=== PATIENT | male | born 1955 | race Caucasian/White ===

== ENCOUNTER → 2018-01-02 | Outpatient (CLI) | payer BC ==
[2015-03-08 13:25] VITALS: BP 179/93
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
== END | disposition home or self-care (01) ==
LOC: CT 16:59
PROVIDERS: ATTEND Nurse Practitioner Gerontology
DX: K43.9 Ventral hernia without obstruction or gangrene (principal); N32.89 Other specified disorders of bladder
CPT/HCPCS: 72192

== ENCOUNTER 2018-02-11 06:22 | Inpatient (IN) | payer BC ==
[~2018-02-11] VITALS: Ht 170.2 cm; Wt 140.6 kg
[2018-02-11] VITALS (11 sets, daily range): BP systolic 99–144; BP diastolic 58–79
[~2018-02-11 06:22] MED LIST: ALLO300T PO; CITA20TA6 PO; GABA800T PO; LISD60CA PO; LISI10TA2 PO; METF500T16 PO; SIMV10TA3 PO; TOPI25TA52 PO; ceFAZolin SODIUM 3 GM in IV DEXTROSE 5% 100ML 100 ML IV PRN
[2018-02-11] MEDS ORDERED: HYDROmorphone 2 MG/ML VIAL IV PRN ×2 (07:00→10:15)
[2018-02-11] MEDS ORDERED: MORPHINE SULFATE 2 MG/ML VIAL. IV PRN (07:00)
[2018-02-11] MEDS ORDERED: fentaNYL PF VIAL 100 MCG/2 ML VIAL IV PRN (07:00)
[2018-02-11] MEDS ORDERED: IV RINGERS,LACTATED 1000ML 1,000 ML IV SCH (07:00)
[2018-02-11] MEDS ORDERED: ONDANSETRON PF 4 MG/2 ML VIAL. IV PRN ×2 (07:00→10:15)
[2018-02-11] MEDS ORDERED: LIDOCAINE 1% PF 2 ML VIAL. ID PRN (07:00)
[2018-02-11] MEDS ORDERED: PROCHLORPERAZINE 10 MG/2 ML VIAL. IV PRN (07:00)
[2018-02-11] MEDS ORDERED: BUPIVAC MPF-EPI 0.5%-1:200000 30 ML VIAL. ONE (07:19)
[2018-02-11 07:32] LABS: BASO % 1 % (0-3); EOS # 0.1 x10^3/uL (0.0-0.7); EOS % 2 % (0-3); HEMATOCRIT 38.2 % (39.0-53.0); HEMOGLOBIN 12.6 g/dL (13.0-17.5); LYMPH % 20 % (24-48); MEAN CORPUSCULAR HEMOGLOBIN 31 pg (25-35); MEAN CORPUSCULAR HGB CONC 33 g/dL (31-37); MEAN CORPUSCULAR VOLUME 92 fL (79-100); MONO # 0.4 x10^3/uL (0.0-1.1); MONO % 8 % (0-9); NEUT # 3.6 x10^3uL (1.8-7.7); NEUT % 70 % (31-73); PLATELET COUNT 190 x10^3/uL (140-400); RED BLOOD COUNT 4.13 x10^6/uL (4.30-5.70); RED CELL DISTRIBUTION WIDTH 15.5 % (11.5-14.5); WHITE BLOOD COUNT 5.2 x10^3/uL (4.0-11.0)
[2018-02-11] MEDS ORDERED: fentaNYL PF VIAL 100 MCG/2 ML VIAL ONE ×2 (07:45→08:16)
[2018-02-11] MEDS ORDERED: SUCCINYLCHOLINE 200 MG/10 ML VIAL. ONE (07:45)
[2018-02-11] MEDS ORDERED: ROCURONIUM 50 MG/5 ML VIAL. ONE (07:45)
[2018-02-11] MEDS ORDERED: MIDAZOLAM HCL/PF 2 MG/2 ML VIAL. ONE (07:46)
[2018-02-11 08:00] LABS: ALBUMIN 3.3 g/dL (3.4-5.0); CALCIUM 9.3 mg/dL (8.5-10.1); CREATININE 1.6 mg/dL (0.7-1.3); GFR 44.2
[2018-02-11] MEDS ORDERED: ePHEDrine PF IN SALINE 50 MG/5 ML DISP.SYRIN IV ONE (08:19)
[2018-02-11] MEDS ORDERED: GLYCOPYRROLATE 1 MG/5 ML VIAL. ONE (08:20)
[2018-02-11] MEDS ORDERED: PROPOFOL 20 ML IV ONE ×2 (08:26→09:21)
[2018-02-11] MEDS ORDERED: LIDOCAINE 2% PF Vial for OR 5 ML VIAL. ONE (08:26)
[2018-02-11] MEDS ORDERED: DEXAMETHASONE SOD PHOS 20 MG/5 ML VIAL. ONE (08:27)
[2018-02-11] MEDS ORDERED: ONDANSETRON PF 4 MG/2 ML VIAL. ONE (08:27)
[2018-02-11] MEDS ORDERED: NEOSTIGMINE METHYLSULFATE 5 MG/5 ML SYRINGE. ONE (08:40)
[2018-02-11] MEDS ORDERED: diphenhydrAMINE HCL 25 MG CAPSULE PO PRN (10:15)
[2018-02-11] MEDS ORDERED: oxyCODONE/APAP 5/325 1 TAB TABLET PO PRN ×2 (10:15)
[2018-02-11] MEDS ORDERED: 0.9 % SODIUM CHLORIDE 10 ML DISP.SYRIN. IV PRN (10:15)
[2018-02-11] MEDS: fentaNYL PF VIAL 100 MCG/2 ML VIAL IV PRN ×2 (10:16→10:24)
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
--- NOTE | 2018-02-11 10:18 | PDOC ---
BRIEF OPERATIVE NOTE Date: Feb 11, 2018 Pre-Op Diagnosis ventral incisional hernia Post-Op Diagnosis same, adhesions Procedure Performed repair with mesh ANNA Surgeon Guillermo Trains Dispatcher Supervisor Bethany RUTLEDGE Anesthesia Type: General Blood Loss 25cc IV Fluid 1000cc Urine Output 150cc Specimens Obtained hernia sack Findings multiple defects abdominal adhesions Complications none ERNA MARKHAM MD Feb 11, 2018 10:18
[2018-02-11] MEDS: ENOXAPARIN 40 MG/0.4 ML SYRINGE. SQ SCH (11:00)
[2018-02-11] MEDS: CITALOPRAM 20 MG TABLET. PO SCH (12:51)
[2018-02-11] MEDS: ALLOPURINOL 300 MG TABLET. PO SCH (12:51)
[2018-02-11] MEDS: TOPIRAMATE 25 MG TABLET. PO SCH ×2 (12:51→20:21)
[2018-02-11] MEDS: LISINOPRIL 10 MG TABLET PO SCH (12:52)
[2018-02-11] MEDS: IV 1/2 NORMAL SALINE 1,000 ML IV SCH ×2 (12:55→20:05)
[2018-02-11] MEDS: GABAPENTIN 300 MG CAPSULE. PO SCH ×2 (14:00→20:22)
[2018-02-11] MEDS: metFORMIN 500 MG TABLET PO SCH (17:00)
[2018-02-11] MEDS: DOCUSATE SODIUM 100 MG CAPSULE. PO SCH (20:21)
[2018-02-11] MEDS ORDERED: SIMVASTATIN 10 MG TABLET PO SCH (21:00)
[2018-02-12] MEDS: IV 1/2 NORMAL SALINE 1,000 ML IV SCH (02:26)
[2018-02-12 03:00] VITALS: BP 112/65
[2018-02-12 07:00] VITALS: BP 122/74
--- NOTE | 2018-02-12 08:01 | PDOC ---
SURGICAL PROGRESS NOTE Subjective tolerating clears, would like more to eat no n/v no bowel function yet pain at drain site Vital Signs Vital Signs Date Time Temp Pulse Resp B/P (MAP) Pulse Ox O2 Delivery O2 Flow Rate FiO2 02/12/18 03:00 97.8 51 16 112/65 (81) 96 Room Air 97.8 02/11/18 16:42 2.0 I&O Intake and Output 02/12/18 07:00 Intake Total 2250 ml Output Total 3550 ml Balance -1300 ml Intake IV Total 2250 ml Output Urine Total 3450 ml Drainage Total 100 ml General: Alert, Oriented X3, Cooperative, No acute distress Abdomen: Soft, Other (sudarshan serosang, dressing dry) Labs Laboratory Tests Test 02/11/18 07:15 02/11/18 10:03 02/11/18 20:26 White Blood Count 5.2 x10^3/uL (4.0-11.0) Red Blood Count 4.13 x10^6/uL (4.30-5.70) Hemoglobin 12.6 g/dL (13.0-17.5) Hematocrit 38.2 % (39.0-53.0) Mean Corpuscular Volume 92 fL (79-100) Mean Corpuscular Hemoglobin 31 pg (25-35) Mean Corpuscular Hemoglobin Concent 33 g/dL (31-37) Red Cell Distribution Width 15.5 % (11.5-14.5) Platelet Count 190 x10^3/uL (140-400) Neutrophils (%) (Auto) 70 % (31-73) Lymphocytes (%) (Auto) 20 % (24-48) Monocytes (%) (Auto) 8 % (0-9) Eosinophils (%) (Auto) 2 % (0-3) Basophils (%) (Auto) 1 % (0-3) Neutrophils # (Auto) 3.6 x10^3uL (1.8-7.7) Lymphocytes # (Auto) 1.0 x10^3/uL (1.0-4.8) Monocytes # (Auto) 0.4 x10^3/uL (0.0-1.1) Eosinophils # (Auto) 0.1 x10^3/uL (0.0-0.7) Basophils # (Auto) 0.0 x10^3/uL (0.0-0.2) Sodium Level 142 mmol/L (136-145) Potassium Level 4.0 mmol/L (3.5-5.1) Chloride Level 107 mmol/L (98-107) Carbon Dioxide Level 24 mmol/L (21-32) Anion Gap 11 (6-14) Blood Urea Nitrogen 16 mg/dL (8-26) Creatinine 1.6 mg/dL (0.7-1.3) Estimated GFR (Cockcroft-Gault) 44.2 Glucose Level 120 mg/dL (70-99) Calcium Level 9.3 mg/dL (8.5-10.1) Albumin 3.3 g/dL (3.4-5.0) Glucose (Fingerstick) 132 mg/dL (70-99) 143 mg/dL (70-99) Laboratory Tests Test 02/11/18 10:03 02/11/18 20:26 Glucose (Fingerstick) 132 mg/dL (70-99) 143 mg/dL (70-99) Problem List s/p VIH ambulate advance diet possible dc later today TOÑO EVERETT APRN Feb 12, 2018 08:01
[2018-02-12] MEDS ORDERED: DOCU-109 PO (08:03)
[2018-02-12] MEDS ORDERED: OXYC1TAB7 PO (08:03)
--- NOTE | 2018-02-12 08:05 | DISCH ---
DISCHARGE INSTRUCTIONS Condition on Discharge Condition on Discharge: Stable Activity After Discharge Activity Instructions for Disc: Activity as tolerated Other activity instructions: ok to shower Bathing Instructions: Shower-keep dressing dry Lifting Instructions after Dis: No heavy lifting, No pulling or pushing, Do not lift >10 pounds Exercise Instruction after Dis: Progress as tolerated Driving Instructions after Dis: Do not drive Diet after Discharge Diet after Discharge: Diabetic No Calorie Level Wound Incision Care Wound/Incision Care: Change dressing (to drain site, wear abdominal binder when up), May get incision wet Other wound/incision instructi: drain care as instructed Contacting the [facility] after DC Call your doctor for: Concerns you may have Follow-Up Follow up with: Dr Li 1 week, call to schedule [phone] TOÑO EVERETT APRN Feb 12, 2018 08:05
[2018-02-12] MEDS: metFORMIN 500 MG TABLET PO SCH ×2 (08:14→17:05)
[2018-02-12] MEDS ORDERED: LISDEXAMFETAMINE DIMESYLATE 60 MG PO SCH (09:00)
[2018-02-12] MEDS: LISINOPRIL 10 MG TABLET PO SCH (09:04)
[2018-02-12] MEDS: DOCUSATE SODIUM 100 MG CAPSULE. PO SCH (09:04)
[2018-02-12] MEDS: ALLOPURINOL 300 MG TABLET. PO SCH (09:06)
[2018-02-12] MEDS: GABAPENTIN 300 MG CAPSULE. PO SCH ×2 (09:06→13:58)
[2018-02-12] MEDS: CITALOPRAM 20 MG TABLET. PO SCH (09:06)
[2018-02-12] MEDS: TOPIRAMATE 25 MG TABLET. PO SCH (09:06)
[2018-02-12] MEDS ORDERED: DEXTROSE 50% 25 GM / 50ML DISP.SYRIN. IV PRN (10:30)
[2018-02-12 11:00] VITALS: BP 136/70
[2018-02-12] MEDS ORDERED: INSULIN LISPRO 300 UNITS/3 ML INSULN.PEN. SQ SCH (12:00)
[2018-02-12] MEDS: ENOXAPARIN 40 MG/0.4 ML SYRINGE. SQ SCH (12:57)
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
[2018-02-12] MEDS ORDERED: ONDANSETRON PF 4 MG/2 ML VIAL. IV PRN (14:15)
[2018-02-12] MEDS ORDERED: MORPHINE SULFATE 2 MG/ML VIAL. IV PRN (14:15)
[2018-02-12] MEDS ORDERED: DOCUSATE SODIUM 100 MG CAPSULE. PO PRN (14:15)
[2018-02-12] MEDS ORDERED: ACETAMINOPHEN 325 MG TABLET. PO PRN (14:15)
[2018-02-12] MEDS ORDERED: traMADol 50 MG TABLET PO PRN (14:15)
[2018-02-12 15:00] VITALS: BP 121/68
--- NOTE | 2018-02-12 16:55 | PDOC3 ---
Discharge Summary Visit Information Date of Admission: Feb 11, 2018 Date of Discharge: Feb 12, 2018 Admitting Diagnosis Comment: VIH obesity Final Diagnosis same Brief Hospital Course Allergies Allergies Coded Allergies Type Severity Reaction Last Updated Verified pioglitazone Allergy Unknown WEIGHT GAIN 02/11/18 Yes Vital Signs Vital Signs Date Time Temp Pulse Resp B/P (MAP) Pulse Ox O2 Delivery O2 Flow Rate FiO2 02/12/18 15:00 97.8 72 16 121/68 (85) 96 Nasal Cannula 2.0 97.8 Lab Results Laboratory Tests Test 02/11/18 07:15 02/11/18 10:03 02/11/18 20:26 02/12/18 11:52 White Blood Count 5.2 x10^3/uL (4.0-11.0) Red Blood Count 4.13 x10^6/uL (4.30-5.70) Hemoglobin 12.6 g/dL (13.0-17.5) Hematocrit 38.2 % (39.0-53.0) Mean Corpuscular Volume 92 fL (79-100) Mean Corpuscular Hemoglobin 31 pg (25-35) Mean Corpuscular Hemoglobin Concent 33 g/dL (31-37) Red Cell Distribution Width 15.5 % (11.5-14.5) Platelet Count 190 x10^3/uL (140-400) Neutrophils (%) (Auto) 70 % (31-73) Lymphocytes (%) (Auto) 20 % (24-48) Monocytes (%) (Auto) 8 % (0-9) Eosinophils (%) (Auto) 2 % (0-3) Basophils (%) (Auto) 1 % (0-3) Neutrophils # (Auto) 3.6 x10^3uL (1.8-7.7) Lymphocytes # (Auto) 1.0 x10^3/uL (1.0-4.8) Monocytes # (Auto) 0.4 x10^3/uL (0.0-1.1) Eosinophils # (Auto) 0.1 x10^3/uL (0.0-0.7) Basophils # (Auto) 0.0 x10^3/uL (0.0-0.2) Sodium Level 142 mmol/L (136-145) Potassium Level 4.0 mmol/L (3.5-5.1) Chloride Level 107 mmol/L (98-107) Carbon Dioxide Level 24 mmol/L (21-32) Anion Gap 11 (6-14) Blood Urea Nitrogen 16 mg/dL (8-26) Creatinine 1.6 mg/dL (0.7-1.3) Estimated GFR (Cockcroft-Gault) 44.2 Glucose Level 120 mg/dL (70-99) Calcium Level 9.3 mg/dL (8.5-10.1) Albumin 3.3 g/dL (3.4-5.0) Glucose (Fingerstick) 132 mg/dL (70-99) 143 mg/dL (70-99) 133 mg/dL (70-99) Laboratory Tests Test 02/11/18 20:26 02/12/18 11:52 Glucose (Fingerstick) 143 mg/dL (70-99) 133 mg/dL (70-99) Brief Hospital Course Mr. Mancia is a 62 old obese male diabetic who presented with ventral incisional hernia Discharge Information Condition at Discharge: Improved Follow Up: As Needed Disposition/Orders: D/C to Home Scheduled Allopurinol (Allopurinol) 300 Mg Tablet, 300 MG PO DAILY for GOUT, (Reported) Entered as Reported by: PATRICIO SHELDON on 02/08/18 1504 Last Taken: Unknown Dose on 02/10/18 Last Action: Continued on 02/11/18 1010 by ERNA MARKHAM Citalopram Hydrobromide (Citalopram Hbr) 20 Mg Tablet, 20 MG PO DAILY for DEPRESSION, (Reported) Entered as Reported by: PATRICIO SHELDON on 02/08/18 1504 Last Taken: Unknown Dose on 02/10/18 Last Action: Continued on 02/11/18 1010 by ERNA MARKHAM Gabapentin (Neurontin) 800 Mg Tablet, 900 MG PO TID for NEUROPATHY, (Reported) Entered as Reported by: PATRICIO SHELDON on 02/08/18 1504 Last Taken: Unknown Dose on 02/10/18 Last Action: Converted on 02/11/18 1010 by ERNA MARKHAM Lisdexamfetamine Dimesylate (Vyvanse) 60 Mg Capsule, 60 MG PO DAILY for OTHER, ( Reported) Entered as Reported by: PATRICIO SHELDON on 02/08/18 1504 Last Taken: Unknown Dose on 02/10/18 Last Action: Converted on 02/11/18 1010 by ERNA MARKHAM Lisinopril (Lisinopril) 10 Mg Tablet, 10 MG PO DAILY for FOR HYPERTENSION, #30 Ref 0 (Reported) Entered as Reported by: PATRICIO SHELDON on 02/08/18 1504 Last Taken: Unknown Dose on 02/10/18 Last Action: Continued on 02/11/18 1010 by ERNA MARKHAM Metformin Hcl (Metformin Hcl) 500 Mg Tablet, 500 MG PO BIDWMEALS for ANTI- DIABETIC, Ref 0 (Reported) Entered as Reported by: PATRICIO SHELDON on 02/08/18 1504 Last Taken: Unknown Dose on 02/10/18 Last Action: Converted on 02/11/18 1010 by ERNA MARKHAM Simvastatin (Simvastatin) 10 Mg Tablet, 10 MG PO HS for FOR CHOLESTEROL, #30 Ref 0 (Reported) Entered as Reported by: PATRICIO SHELDON on 02/08/18 1504 Last Taken: Unknown Dose on 02/10/18 Last Action: Continued on 02/11/18 1010 by ERNA MARKHAM Topiramate (Topamax) 25 Mg Tablet, 25 MG PO BID for OTHER, (Reported) Entered as Reported by: PATRICIO SHELDON on 02/08/18 1504 Last Taken: Unknown Dose on 02/10/18 Last Action: Converted on 02/11/18 1010 by ERNA MARKHAM Scheduled PRN Docusate Sodium (Colace) 100 Mg Capsule, 100 MG PO BID PRN for CONSTIPATION, # 60 Ref 0 Prescribed by: Catrachita Monique on 02/12/18802 Oxycodone Hcl/Acetaminophen (Oxycodone-Acetaminophen 5-325) 1 Each Tablet, 1 TAB PO PRN Q4HRS PRN for MILD PAIN, 1ST CHOICE, #30 Ref 0 Prescribed by: Catrachita Monique on 02/12/18802 ERNA MARKHAM MD Feb 12, 2018 16:55
--- NOTE | 2018-02-12 17:38 | OP ---
DATE OF SURGERY: 02/11/2018 PREOPERATIVE DIAGNOSIS: Ventral incisional hernia. POSTOPERATIVE DIAGNOSIS: Ventral incisional hernia with adhesions. PROCEDURE: Repair with mesh and lysis of adhesions. SURGEON: Leonid Markham MD COTTON BROKER: MATY Henley. ANESTHESIA: General endotracheal. ESTIMATED BLOOD LOSS: 25. INTRAVENOUS FLUIDS: 1 liter. URINE OUTPUT: 150. INDICATIONS: The patient is an obese 62-year-old male diabetic with a ventral hernia, brought for repair. DESCRIPTION OF PROCEDURE: The patient brought to the operating suite, given a general endotracheal anesthetic and the abdomen was prepped and draped in the usual sterile fashion. The old midline incisional scar was excised and dissection carried down to the anterior sheath. Three separate areas of abdominal wall defects were identified. Two were connected. The contents were reduced with careful dissection and an area cleared to allow placement of mesh. Hernia sac excised. When a correct sponge count had been obtained, a medium oval Ventrio patch was placed and tacked around the periphery with AbsorbaTack. The mesh was then anchored at 12, 3, 6, and 9 with 0 PDS. As much of the attenuated fascias could be approximated was done so with 0 Vicryl. A 19-Mongolian round Chad drain left in the subcutaneous tissue for postoperative drainage, secured to the skin with a silk stitch. When a second sponge count was correct, the skin was closed with cachorro. Sterile dressings applied. Abdominal binder placed. The patient awakened from his anesthetic and taken to the recovery room in satisfactory condition. LEONID MARKHAM MD DR: MITA/davin JOB#: [id number] / [id number]
--- NOTE | 2018-02-12 18:07 | PATHOLOGY ---
[facility] Accession Number: [id number] . 01 Material submitted: . HERNIA SAC . 01 Clinical history: . Hernia sac . 02 Diagnosis: Segments of fibromembranous and fibroadipose tissue, ventral hernia repair: - Hernia sac showing focal submesothelial reactive fibrosis, fat necrosis, and mild chronic inflammation. . (JPM:vjm;02/12/2018) AGA/02/12/2018 . 02 Electronically signed: . Jam Scherer MD, Pathologist NPI- [id number] . 01 Gross description: . The specimen is received in formalin, labeled "David Mancia, hernia sac" and consists of 3 segments of pink-jacob membranous tissue with attached yellow adipose tissue measuring 11.8 x 11.8 x 3.5 cm in aggregate. Sectioning reveals multifocal fat necrosis and no masses or lesions. Stoker Erector sections are submitted in A1. (SDY; 02/11/2018) SYU/SYU . 02 Pathologist provided ICD-10: K43.9 . 02 CPT . 010121 Specimen Comment: A courtesy copy of this report has been sent to Specimen Comment: [phone], . Specimen Comment: Report sent to / DR MOSLEY Specimen Comment: A duplicate report has been generated due to demographic updates. Performed at: 01 [facility] [address], [place] [id number] MD David Mayberry MD Phone: [phone] Performed at: 02 [facility] [address] [place], [place] [id number] MD Jam Scherer MD Phone: [phone]
== END 2018-02-12 18:30 | disposition home or self-care (01) | DRG 354 ==
LOC: SURG 06:22 → 4 NORTH 11:32
PROVIDERS: ADMIT Surgery; ATTEND Surgery
PROC: 0WUF0JZ Supplement Abdominal Wall with Synthetic Substitute, Open Approach (ICD-10-PCS; principal; 2018-02-11 08:00)
DX: K43.2 Incisional hernia without obstruction or gangrene (principal); Z68.41 Body mass index [BMI] 40.0-44.9, adult; F32.9 Major depressive disorder, single episode, unspecified; E11.22 Type 2 diabetes mellitus with diabetic chronic kidney disease; I12.9 Hypertensive chronic kidney disease with stage 1 through stage 4 chronic kidney disease, or unspecified chronic kidney disease; N18.3 Chronic kidney disease, stage 3 (moderate); E66.01 Morbid (severe) obesity due to excess calories; Z98.84 Bariatric surgery status; Z82.49 Family history of ischemic heart disease and other diseases of the circulatory system; Z88.8 Allergy status to other drugs, medicaments and biological substances
CPT/HCPCS: 36415; 80048; 82040; 82962; 85025; 88302; A7015; C1781; J0330; J1100; J1170; J1650; J1815; J2001; J2250; J2405; J2704; J2710; J3010; J3490; J7120